=== PATIENT | female | born 1935 | race Hispanic/Latino ===

== ENCOUNTER 2018-09-26 21:41 | Emergency (ER) | payer MEDICARE ==
[2018-09-26] MEDS ORDERED: TETRACAINE HCL 0.5% 4 ML OPHTH SOLN ONE (22:14)
[2018-09-26] MEDS ORDERED: FLUORESCEIN SODIUM 0.6 MG STRIP ONE (22:59)
[2018-09-26] MEDS ORDERED: NA BORATE/BORIC AC/H2O/NACL 120 ML OPHTH IRRIG SOLN ONE (22:59)
[2018-09-26] MEDS ORDERED: AcetaZOLAMIDE 250 MG TAB ONE (23:19)
[2018-09-26] MEDS ORDERED: TIMOLOL MALEATE 0.5% 5 ML BOTTLE ONE (23:25)
[2018-09-26] MEDS ORDERED: BRIMONIDINE TARTRATE 0.2% 5 ML BOTTLE ONE (23:26)
== END 2018-09-26 23:51 | disposition home or self-care (01) ==
LOC: EDH 21:41
DX: H40.9 Unspecified glaucoma (principal); I10 Essential (primary) hypertension; E11.9 Type 2 diabetes mellitus without complications; Z90.710 Acquired absence of both cervix and uterus; Z98.890 Other specified postprocedural states; Z95.0 Presence of cardiac pacemaker

== ENCOUNTER 2019-03-31 14:27 | Emergency (ER) | payer MEDICARE | END 2019-03-31 15:15 | disposition home or self-care (01) | LOC: EDH 14:27 | DX: E11.40 Type 2 diabetes mellitus with diabetic neuropathy, unspecified (principal); E11.39 Type 2 diabetes mellitus with other diabetic ophthalmic complication; H40.9 Unspecified glaucoma; H42 Glaucoma in diseases classified elsewhere; I10 Essential (primary) hypertension; Z88.0 Allergy status to penicillin; Z90.710 Acquired absence of both cervix and uterus; Z87.891 Personal history of nicotine dependence | CPT/HCPCS: 73660 ==

== ENCOUNTER 2022-07-10 07:15 | Emergency (ER) | payer MEDICARE ==
[~2022-07-10] VITALS: Ht 147.3 cm; Wt 54.4 kg
[2022-07-10 07:48] LABS: APPEARANCE,URINE CLOUDY (CLEAR); BILIRUBIN,URINE NEGATIVE (NEGATIVE); COLOR,URINE YELLOW (YELLOW); GLUCOSE, URINE (UA) NEGATIVE (NEGATIVE); KETONES,URINE NEGATIVE (NEGATIVE); LEUKOCYTE ESTERASE ,URINE LARGE (NEGATIVE); NITRATE,URINE POSITIVE (NEGATIVE); OCCULT BLOOD,URINE MODERATE (NEGATIVE); PROTEIN,URINE NEGATIVE (NEGATIVE); UROBILINOGEN,URINE 0.2 mg/dL (0.2-1.0)
[2022-07-10 08:27] LABS: BACTERIA,URINE Few /HPF (None Seen); SQUAMOUS EPITHELIAL CELL,UR Rare /HPF (0-2); WBC,URINE >100 /HPF (0-1)
[2022-07-10] MEDS ORDERED: MACR100 PO (08:40)
[2022-07-10] MEDS ORDERED: PHEN-847 PO (08:40)
[2022-07-10] MEDS ORDERED: PHENAZOPYRIDINE HCL 200 MG TABLET PO ONE (09:00)
[2022-07-10] MEDS ORDERED: NITROFURANTOIN MONOHYD/M-CRYST 100 MG CAPSULE PO ONE (09:00)
[2022-07-10 09:16] VITALS: BP 165/86
== END 2022-07-10 09:15 | disposition home or self-care (01) ==
LOC: EDH 07:15
DX: N39.0 Urinary tract infection, site not specified (principal); J45.909 Unspecified asthma, uncomplicated; E11.9 Type 2 diabetes mellitus without complications; E78.00 Pure hypercholesterolemia, unspecified; I10 Essential (primary) hypertension; Z88.0 Allergy status to penicillin; Z90.89 Acquired absence of other organs; Z98.890 Other specified postprocedural states; Z90.49 Acquired absence of other specified parts of digestive tract
CPT/HCPCS: 81001; 87088

== ENCOUNTER 2022-07-21 14:06 | Observation (INO) | payer MEDICARE ==
[~2022-07-21] VITALS: Ht 149.9 cm; Wt 54.4 kg
[~2022-07-21 14:06] MED LIST: MACR100 PO; PHEN-847 PO
[2022-07-21 14:24] LABS: BASOPHILS % (AUTO) 0.7 % (0.0-5.0); EOSINOPHILS % (AUTO) 2.3 % (0.0-8.0); HEMATOCRIT 33.1 % (36-48); LYMPHOCYTES % (AUTO) 21.4 % (21.0-51.0); MEAN CORPUSCULAR HEMOGLOBIN 26.7 pg (27.0-33.0); MEAN CORPUSCULAR HGB CONC 32.9 g/dL (32.0-36.0); MEAN CORPUSCULAR VOLUME 81.1 fL (79-99); MONOCYTES % (AUTO) 8.2 % (3.0-13.0); PLATELET COUNT (AUTO) 248 K/uL (130-400); RED BLOOD CELL COUNT(AUTO) 4.08 MIL/uL (4.00-5.50); RED CELL DISTRIBUTION WIDTH 13.7 % (11.0-15.5); WHITE BLOOD COUNT (AUTO) 9.4 K/uL (4.8-10.8)
[2022-07-21] MEDS ORDERED: ASPIRIN 325MG TAB PO ONE (14:30)
[2022-07-21 14:35] LABS: POTASSIUM 4.7 mmol/L (3.5-5.1)
[2022-07-21 14:40] LABS: APPEARANCE,URINE CLEAR (CLEAR); BILIRUBIN,URINE NEGATIVE (NEGATIVE); COLOR,URINE YELLOW (YELLOW); GLUCOSE, URINE (UA) NEGATIVE (NEGATIVE); KETONES,URINE NEGATIVE (NEGATIVE); LEUKOCYTE ESTERASE ,URINE NEGATIVE Leu/uL (NEGATIVE); NITRATE,URINE NEGATIVE (NEGATIVE); OCCULT BLOOD,URINE NEGATIVE (NEGATIVE); PH,URINE 5.5 (5.0-8.0); PROTEIN,URINE NEGATIVE (NEGATIVE); UROBILINOGEN,URINE 0.2 mg/dL (0.2-1.0)
[2022-07-21 14:46] LABS: ALBUMIN 3.7 g/dL (3.5-5.0); TOTAL PROTEIN, SERUM 7.3 g/dL (6.0-8.3)
[2022-07-21] MEDS ORDERED: ASPIRIN 325MG TAB ONE (14:55)
[2022-07-21] MEDS ORDERED: ONDANSETRON 4MG INJ IV PRN (17:00)
[2022-07-21] MEDS ORDERED: GUAIFENESIN-DM 200/20 MG 10 ML PO PRN (17:00)
[2022-07-21] MEDS ORDERED: ACETAMINOPHEN 325 MG TAB PO PRN ×2 (17:00)
[2022-07-21] MEDS ORDERED: MAG/ALUM/SIMETH 30 ML UDCUP PO PRN (17:00)
[2022-07-21] MEDS ORDERED: LACTULOSE 20 GM/30 ML UDCUP PO PRN (17:00)
[2022-07-21] MEDS ORDERED: DiphenhydrAMINE HCL 50 MG/ML VIAL IV PRN (17:00)
[2022-07-21] MEDS ORDERED: DIPHENHYDRAMINE HCL 25 MG CAPSULE PO PRN (17:00)
[2022-07-21] MEDS ORDERED: NITROGLYCERIN 0.4 MG SL TAB SL PRN (17:00)
[2022-07-21] MEDS ORDERED: SITA100T12 PO (17:03)
[2022-07-21] MEDS ORDERED: DOCU100C33 PO (17:03)
[2022-07-21] MEDS ORDERED: METF-445 PO (17:03)
[2022-07-21] MEDS ORDERED: BIMA12.5OS OD (17:03)
[2022-07-21] MEDS ORDERED: OMEP-420 PO (17:03)
[2022-07-21] MEDS ORDERED: BENA-8 PO (17:03)
[2022-07-21] MEDS ORDERED: PRAV40TA3 PO (17:03)
[2022-07-21] MEDS ORDERED: APIX5TAB PO (17:03)
[2022-07-21] MEDS ORDERED: SOTA80TA PO (17:03)
[2022-07-21] MEDS ORDERED: AMLO-257 PO (17:03)
[2022-07-21] MEDS ORDERED: FAMOTIDINE 20MG VIAL IV SCH (21:00)
[2022-07-21] MEDS ORDERED: HEPARIN 5,000 UNIT VIAL SQ SCH (21:00)
[2022-07-21] MEDS ORDERED: FAMOTIDINE 20MG TAB PO SCH (21:00)
[2022-07-21] MEDS ORDERED: MAGNESIUM 2GM PREMIX 50ML 50 ML IV PRN (22:00)
[2022-07-21] MEDS ORDERED: KCL 20 MEQ ERTAB PO PRN (22:00)
[2022-07-21] MEDS ORDERED: LIDOCAINE HCL-MPF 1% 2ML VIAL IV PRN (22:00)
[2022-07-21] MEDS ORDERED: POTASSIUM CHLORIDE 20MEQ/100ML 100 ML IV PRN (22:00)
[2022-07-21] MEDS ORDERED: POTASSIUM CHLORIDE 10% ELIXIR 20 MEQ/15 ML UDCUP PO PRN (22:00)
[2022-07-21] MEDS ORDERED: DEXTROSE 50%-WATER 50 ML DISP.SYRIN IV PRN (22:00)
[2022-07-21] MEDS ORDERED: GLUCAGON 1MG KIT 1 MG ML IM PRN (22:00)
[2022-07-21] MEDS: 0.9%NACL 1000ML 1,000 ML IV SCH (22:42)
[2022-07-21] MEDS ORDERED: PRED5DRO25 OP (23:32)
[2022-07-21 23:55] VITALS: BP 159/83
[2022-07-22 04:15] VITALS: BP 117/63
[2022-07-22] MEDS: INSULIN HUMULIN R 100 UNIT/ML 3ML SQ SCH ×2 (05:48→11:53)
[2022-07-22 05:49] LABS: BASOPHILS % (AUTO) 0.6 % (0.0-5.0); HEMATOCRIT 30.6 % (36-48); LYMPHOCYTES % (AUTO) 25.8 % (21.0-51.0); MEAN CORPUSCULAR HEMOGLOBIN 26.7 pg (27.0-33.0); MONOCYTES % (AUTO) 10.9 % (3.0-13.0); NEUTROPHILS % (AUTO) 59.1 % (40.0-77.0); PLATELET COUNT (AUTO) 233 K/uL (130-400); RED BLOOD CELL COUNT(AUTO) 3.78 MIL/uL (4.00-5.50); RED CELL DISTRIBUTION WIDTH 13.7 % (11.0-15.5)
[2022-07-22 06:06] LABS: CREATININE 0.8 mg/dL (0.5-1.5); MAGNESIUM 1.5 mg/dL (1.80-2.40); PHOSPHORUS 3.7 mg/dL (2.5-4.9); POTASSIUM 4.7 mmol/L (3.5-5.1)
[2022-07-22 08:00] VITALS: BP 107/67
[2022-07-22] MEDS ORDERED: AMLODIPINE 5 MG TAB PO SCH (09:00)
[2022-07-22] MEDS ORDERED: NON-FORMULARY MEDICATION 1 EACH (Benazepril HCl 20 MG) PO SCH (09:00)
[2022-07-22] MEDS ORDERED: Pravastatin Sodium 40 MG PO SCH (09:00)
[2022-07-22] MEDS ORDERED: DOCUSATE SODIUM 100 MG CAP PO SCH (09:00)
[2022-07-22] MEDS ORDERED: BENAZEPRIL HCL 10 MG TABLET PO SCH (09:00)
[2022-07-22] MEDS ORDERED: APIXABAN 5 MG TABLET PO SCH (09:00)
[2022-07-22] MEDS ORDERED: Bimatoprost (Lumigan 0.01% Ophth Soln) OD SCH (09:00)
[2022-07-22] MEDS: 0.9%NACL 1000ML 1,000 ML IV SCH (09:13)
[2022-07-22 11:39] VITALS: BP 129/69
[2022-07-22] MEDS ORDERED: SIMVASTATIN 20 MG TABLET PO SCH (21:00)
[2022-07-23] MEDS ORDERED: SOTALOL HCL 80 MG TABLET PO SCH (09:00)
[2022-07-23] MEDS ORDERED: AMLODIPINE 5 MG TAB PO SCH (21:00)
== END 2022-07-22 14:35 | disposition home or self-care (01) ==
LOC: EDH 14:06 → EDHIP 16:38 → 3AH 22:26
PROVIDERS: ADMIT Internal Medicine; ATTEND Internal Medicine
DX: I49.9 Cardiac arrhythmia, unspecified (principal); I82.409 Acute embolism and thrombosis of unspecified deep veins of unspecified lower extremity; I10 Essential (primary) hypertension; E78.5 Hyperlipidemia, unspecified; E11.9 Type 2 diabetes mellitus without complications; D64.9 Anemia, unspecified; E78.00 Pure hypercholesterolemia, unspecified; E87.1 Hypo-osmolality and hyponatremia; I48.91 Unspecified atrial fibrillation; I49.49 Other premature depolarization; J45.909 Unspecified asthma, uncomplicated; Z90.710 Acquired absence of both cervix and uterus; Z95.0 Presence of cardiac pacemaker; Z88.0 Allergy status to penicillin; Z79.01 Long term (current) use of anticoagulants; Z79.899 Other long term (current) drug therapy; Z87.891 Personal history of nicotine dependence; Z96.652 Presence of left artificial knee joint
CPT/HCPCS: 96372; 96361 ×2; 99285; 82550; 83874; 84484; 80053; 85025 ×2; 81003; 36415 ×2; 71045; 93005; 96365; 96366; 83735; 84100; 80048; 82948 ×2; G0378 ×22; J1644; J1815; J3475; J7030

== ENCOUNTER → 2022-10-11 | Outpatient (CLI) | payer MEDICARE ==
[~2022-10-11] MED LIST changes: +AMLO-257 PO; +APIX5TAB PO; +BENA-8 PO; +BIMA12.5OS OD; +DOCU100C33 PO; -MACR100 PO; +METF-445 PO; +OMEP-420 PO; -PHEN-847 PO; +PRAV40TA3 PO; +PRED5DRO25 OP; +SITA100T12 PO; +SOTA80TA PO
== END | disposition home or self-care (01) ==
LOC: SHCH 08:37
PROVIDERS: ATTEND Internal Medicine Cardiovascular Disease
DX: I87.2 Venous insufficiency (chronic) (peripheral) (principal); Z86.718 Personal history of other venous thrombosis and embolism
CPT/HCPCS: 93970

== ENCOUNTER 2023-02-08 03:02 | Emergency (ER) | payer OTHER, MEDICARE ==
[~2023-02-08] VITALS: Ht 154.9 cm; Wt 54.0 kg
[2023-02-08 03:32] LABS: APPEARANCE,URINE CLEAR (CLEAR); BILIRUBIN,URINE NEGATIVE (NEGATIVE); COLOR,URINE COLORLESS (YELLOW); GLUCOSE, URINE (UA) NEGATIVE (NEGATIVE); KETONES,URINE NEGATIVE (NEGATIVE); LEUKOCYTE ESTERASE ,URINE NEGATIVE Leu/uL (NEGATIVE); NITRATE,URINE NEGATIVE (NEGATIVE); OCCULT BLOOD,URINE NEGATIVE (NEGATIVE); PROTEIN,URINE NEGATIVE (NEGATIVE); UROBILINOGEN,URINE 0.2 mg/dL (0.2-1.0)
[2023-02-08 03:42] LABS: EOSINOPHILS % (AUTO) 9.4 % (0.0-8.0); HEMATOCRIT 40.8 % (36-48); LYMPHOCYTES % (AUTO) 17.7 % (21.0-51.0); MEAN CORPUSCULAR HEMOGLOBIN 27.3 pg (27.0-33.0); MEAN CORPUSCULAR HGB CONC 32.1 g/dL (32.0-36.0); MONOCYTES % (AUTO) 12.2 % (3.0-13.0); NEUTROPHILS % (AUTO) 59.4 % (40.0-77.0); PLATELET COUNT (AUTO) 236 K/uL (130-400); RED CELL DISTRIBUTION WIDTH 14.1 % (11.0-15.5); WHITE BLOOD COUNT (AUTO) 7.7 K/uL (4.8-10.8)
[2023-02-08 03:55] LABS: CREATININE 0.7 mg/dL (0.5-1.5); POTASSIUM 4.5 mmol/L (3.5-5.1)
[2023-02-08 04:00] LABS: ALBUMIN 4.3 g/dL (3.5-5.0); TOTAL PROTEIN, SERUM 8.1 g/dL (6.0-8.3)
[2023-02-08] MEDS ORDERED: ACETAMINOPHEN 500 MG TABLET PO ONE (05:00)
[2023-02-08] MEDS ORDERED: NIRM1TAB PO (05:18)
[2023-02-08 05:21] VITALS: BP 155/80
== END 2023-02-08 05:36 | disposition home or self-care (01) ==
LOC: EDH 03:02
DX: U07.1 COVID-19 (principal); I10 Essential (primary) hypertension; E11.9 Type 2 diabetes mellitus without complications; E78.00 Pure hypercholesterolemia, unspecified; Z95.810 Presence of automatic (implantable) cardiac defibrillator; Z79.899 Other long term (current) drug therapy; Z79.84 Long term (current) use of oral hypoglycemic drugs; Z98.890 Other specified postprocedural states; Z90.49 Acquired absence of other specified parts of digestive tract; Z90.710 Acquired absence of both cervix and uterus; Z88.0 Allergy status to penicillin
CPT/HCPCS: 99285; 71045; 87635; 84484; 80053; 85025; 85378; 87804 ×2; 81003; 36415; 93005; C9803

== ENCOUNTER 2023-07-12 11:57 | Emergency (ER) | payer OTHER, MEDICARE ==
[~2023-07-12] VITALS: Ht 147.3 cm; Wt 53.5 kg
[~2023-07-12 11:57] MED LIST changes: +ALBU90AE2 IH; -APIX5TAB PO; +BETH25 PO; +BRIM5DRO OP; +CHOL100040 PO; +CILO100T3 PO; +CYAN-35 PO; -DOCU100C33 PO; +MAGN200T4 PO; +MELA5CAP PO; +SENN-297 PO
[2023-07-12 12:06] VITALS: BP 155/80; PULSE 111; RESP 16; O2SAT 100
== END 2023-07-12 14:37 | disposition home or self-care (01) ==
LOC: EDH 11:57
DX: T83.9XXA Unspecified complication of genitourinary prosthetic device, implant and graft, initial encounter (principal); E11.9 Type 2 diabetes mellitus without complications; E78.00 Pure hypercholesterolemia, unspecified; I10 Essential (primary) hypertension; Z88.0 Allergy status to penicillin; Z90.49 Acquired absence of other specified parts of digestive tract; Z95.810 Presence of automatic (implantable) cardiac defibrillator; Y82.9 Unspecified medical devices associated with adverse incidents; Y92.9 Unspecified place or not applicable
CPT/HCPCS: 99281

== ENCOUNTER → 2023-08-10 | Outpatient (CLI) | payer OTHER, MEDICARE | END | disposition home or self-care (01) | LOC: RAH 08:31 | PROVIDERS: ATTEND Urology | DX: N32.89 Other specified disorders of bladder (principal); R10.9 Unspecified abdominal pain | CPT/HCPCS: 76770 ==